=== PATIENT | female | born 1995 | race Caucasian/White ===

== ENCOUNTER 2017-01-28 01:06 | Inpatient (IN) | payer MEDICAID ==
[~2017-01-28] VITALS: Ht 170.2 cm; Wt 67.5 kg
[~2017-01-28 01:06] MED LIST: ESTR1TAB15 PO; IBUP200T48 PO; OXYC1TAB7 PO
[2017-01-28] MEDS ORDERED: HYDROmorphone 1 MG/ML, 1ML IVPush PRN (02:30)
[2017-01-28] MEDS ORDERED: SODIUM CHLORIDE FLUSH 10ML SYR IVF ONE (02:30)
[2017-01-28] MEDS ORDERED: ONDANSETRON 2MG/ML, 2ML IVPush ONE (02:30)
[2017-01-28 02:31] LABS: HEMOGLOBIN 13.7 g/dL (11.7-16.4)
[2017-01-28 02:44] LABS: ASPARTATE AMINO TRANSFERASE 17 U/L (15-37); BLOOD UREA NITROGEN 16 mg/dL (7-18)
[2017-01-28] MEDS ORDERED: ONDANSETRON 2MG/ML, 2ML ONE (02:45)
[2017-01-28] MEDS ORDERED: HYDROmorphone 1 MG/ML, 1ML ONE (02:45)
[2017-01-28 03:32] LABS: PATH.CAST-FLAG NOT PRESENT; SPERM-FLAG NOT PRESENT; SRC-FLAG NOT PRESENT; XTAL-FLAG NOT PRESENT; YLC-FLAG NOT PRESENT
[2017-01-28] MEDS ORDERED: OMNIPAQUE 350 MG/ML, 100ML BOTTLE ONE (03:41)
[2017-01-28] MEDS: SODIUM CHLORIDE 0.9% 1,000 ML IV SCH ×4 (04:40→21:22)
[2017-01-28] MEDS ORDERED: ACETAMINOPHEN 325 MG TABLET PO PRN (05:00)
[2017-01-28] MEDS: ONDANSETRON 2MG/ML, 2ML IVP PRN ×2 (06:43→11:36)
[2017-01-28] MEDS: MORPHINE SULFATE 4 MG/ML, 1ML IVPush PRN ×4 (06:44→21:22)
[2017-01-28 07:35] VITALS: BP 101/62
[2017-01-28] MEDS ORDERED: BENZOCAINE 20% SPRAY 0.5ML TP ONE (14:00)
[2017-01-28] MEDS ORDERED: LORazepam 2 MG/ML, 1ML IVPush ONE (14:00)
[2017-01-28 15:11] VITALS: BP 110/71
[2017-01-28 18:47] VITALS: BP 116/78
[2017-01-29 01:47] VITALS: BP 114/68
[2017-01-29] MEDS: MORPHINE SULFATE 4 MG/ML, 1ML IVPush PRN ×4 (03:47→20:51)
[2017-01-29] MEDS: SODIUM CHLORIDE 0.9% 1,000 ML IV SCH ×2 (04:08→12:04)
[2017-01-29 06:02] LABS: HEMOGLOBIN 12.4 g/dL (11.7-16.4)
[2017-01-29 06:06] LABS: ASPARTATE AMINO TRANSFERASE 12 U/L (15-37); BLOOD UREA NITROGEN 9 mg/dL (7-18)
[2017-01-29 07:30] VITALS: BP 119/70
[2017-01-29 13:13] VITALS: BP 114/71
[2017-01-29] MEDS: OXYcodone IR 5MG TABLET PO PRN ×2 (17:10→18:28)
[2017-01-29 19:20] VITALS: BP 105/64
[2017-01-30] MEDS: MORPHINE SULFATE 4 MG/ML, 1ML IVPush PRN ×3 (00:29→12:05)
[2017-01-30 01:08] VITALS: BP 103/64
[2017-01-30 07:59] VITALS: BP 97/60
[2017-01-30] MEDS ORDERED: OMNIPAQUE 350 MG/ML, 100ML BOTTLE ONE (11:49)
[2017-01-30] MEDS: ONDANSETRON 2MG/ML, 2ML IVP PRN (11:58)
[2017-01-30 13:01] VITALS: BP 100/61
== END 2017-01-30 16:16 | disposition home or self-care (01) | DRG 390 ==
LOC: ED 03:15 → EDIP 04:25 → 3NE 07:09 → DCLOUNGE 01-30 15:56
PROVIDERS: ADMIT Internal Medicine; ATTEND Internal Medicine
PROC: 0T9B70Z Drainage of Bladder with Drainage Device, Via Natural or Artificial Opening (ICD-10-PCS; principal; 2017-01-28)
DX: K56.7 Ileus, unspecified (principal); F17.210 Nicotine dependence, cigarettes, uncomplicated; R42 Dizziness and giddiness; Z83.3 Family history of diabetes mellitus; Z90.710 Acquired absence of both cervix and uterus; Z90.722 Acquired absence of ovaries, bilateral; Z90.79 Acquired absence of other genital organ(s)
CPT/HCPCS: 36415; 74177; 80053; 80061; 81001; 83036; 83690; 83735; 84439; 84443; 85025; 87086; 96374; 96375; J1170; J2405; Q9967; J2060; J7030

== ENCOUNTER 2017-03-19 08:42 | Emergency (ER) | payer MEDICAID ==
[~2017-03-19] VITALS: Ht 170.2 cm; Wt 60.0 kg
[2017-03-19] MEDS ORDERED: MORPHINE SULFATE 4 MG/ML, 1ML IVPush PRN ×2 (10:00→12:00)
[2017-03-19] MEDS ORDERED: SODIUM CHLORIDE FLUSH 10ML SYR IVF ONE (10:00)
[2017-03-19] MEDS ORDERED: SODIUM CHLORIDE 0.9% 1,000ML IVBOLUS ONE (10:00)
[2017-03-19] MEDS ORDERED: FAMOTIDINE 20 MG/2 ML IVP ONE (10:00)
[2017-03-19] MEDS ORDERED: ONDANSETRON 2MG/ML, 2ML IVPush ONE (10:00)
[2017-03-19] MEDS ORDERED: ONDANSETRON 2MG/ML, 2ML ONE (10:12)
[2017-03-19] MEDS ORDERED: FAMOTIDINE 20 MG/2 ML ONE (10:12)
[2017-03-19] MEDS ORDERED: MORPHINE SULFATE 4 MG/ML, 1ML ONE ×2 (10:12→12:17)
[2017-03-19 10:29] LABS: BLOOD UREA NITROGEN 9 mg/dL (7-18)
[2017-03-19 10:32] LABS: ASPARTATE AMINO TRANSFERASE 10 U/L (15-37)
[2017-03-19] MEDS ORDERED: OMNIPAQUE 350 MG/ML, 100ML BOTTLE ONE (13:23)
[2017-03-19 14:44] VITALS: BP 106/49
== END 2017-03-19 14:50 | disposition home or self-care (01) ==
LOC: ED 09:50
DX: N30.00 Acute cystitis without hematuria (principal); K59.00 Constipation, unspecified; R10.32 Left lower quadrant pain; Z90.710 Acquired absence of both cervix and uterus
CPT/HCPCS: 36415; 74020; 74177; 80053; 81001; 83690; 85025; 87086; 96361; 96374; 96375; 99285; J2405; J7030; Q9967; S0028

== ENCOUNTER 2017-04-14 13:13 | Emergency (ER) | payer MEDICAID ==
[~2017-04-14] VITALS: Ht 170.2 cm; Wt 60.9 kg
[2017-04-14] MEDS ORDERED: SODIUM CHLORIDE FLUSH 10ML SYR IVF ONE (14:00)
[2017-04-14] MEDS ORDERED: SODIUM CHLORIDE 0.9% 1,000ML IVBOLUS ONE (14:00)
[2017-04-14] MEDS ORDERED: ONDANSETRON 2MG/ML, 2ML IVPush ONE (14:00)
[2017-04-14] MEDS ORDERED: MORPHINE SULFATE 4 MG/ML, 1ML ONE ×2 (14:00→14:47)
[2017-04-14] MEDS ORDERED: ONDANSETRON 2MG/ML, 2ML ONE (14:00)
[2017-04-14] MEDS: MORPHINE SULFATE 4 MG/ML, 1ML IVPush PRN ×2 (14:11→14:48)
[2017-04-14 14:52] LABS: BLOOD UREA NITROGEN 11 mg/dL (7-18)
[2017-04-14] MEDS ORDERED: OMNIPAQUE 350 MG/ML, 100ML BOTTLE ONE (15:23)
[2017-04-14] MEDS ORDERED: ESTR1PAT25 TD (15:28)
[2017-04-14 17:04] VITALS: BP 99/60
== END 2017-04-14 17:09 | disposition home or self-care (01) ==
LOC: ED 14:09
DX: R10.31 Right lower quadrant pain (principal); R11.2 Nausea with vomiting, unspecified; Z90.710 Acquired absence of both cervix and uterus
CPT/HCPCS: 36415; 74177; 80048; 81003; 82040; 85025; 96361; 96374; 96375; 96376; 99285; J2405; J7030; Q9967

== ENCOUNTER 2017-07-07 14:56 | Emergency (ER) | payer MEDICAID ==
[~2017-07-07] VITALS: Ht 170.2 cm; Wt 61.9 kg
[~2017-07-07 14:56] MED LIST changes: +ESTR1PAT25 TD
[2017-07-07] MEDS ORDERED: KETOROLAC 30 MG/1 ML IM ONE (15:30)
[2017-07-07] MEDS ORDERED: KETOROLAC 30 MG/1 ML ONE (15:35)
[2017-07-07] MEDS ORDERED: ONDANSETRON ODT 4 MG ONE (16:49)
[2017-07-07] MEDS ORDERED: ONDANSETRON ODT 4 MG PO ONE (17:00)
[2017-07-07 17:53] VITALS: BP 100/60
== END 2017-07-07 17:53 | disposition home or self-care (01) ==
LOC: ED 17:50
DX: R10.32 Left lower quadrant pain (principal); R10.12 Left upper quadrant pain; Z90.49 Acquired absence of other specified parts of digestive tract; Z90.710 Acquired absence of both cervix and uterus; Z98.890 Other specified postprocedural states
CPT/HCPCS: 74176; 81001; 96372; 99285; J1885; Q0162

== ENCOUNTER → 2017-09-07 | Outpatient (CLI) | payer MEDICAID | END | disposition home or self-care (01) | LOC: EDSTATUS 08-30 14:15 → CFH 14:12 | PROVIDERS: ATTEND Specialist | DX: N63.24 Unspecified lump in the left breast, lower inner quadrant (principal) ==